=== PATIENT | female | born 1965 ===

== ENCOUNTER 2018-06-08 14:10 | Emergency (ER) | payer OTHER ==
[2018-06-08 14:30] VITALS: BMI 33.6
[2018-06-08 14:40] VITALS: RESP 18; O2SAT 97
[2018-06-08] MEDS ORDERED: Sodium Chloride 0.9% 500 ML IV STA (14:47)
--- NOTE | 2018-06-08 14:50 | ED PDOC ---
Arrival/HPI - General Chief Complaint: Cough, Cold, Congestion Time Seen by Provider: 06/08/18 14:46 Historian: Patient, Family - History of Present Illness Narrative History of Present Illness (Text): 06/08/18 14:48 52 y/o female, pmh including htn, nkda, post menopausal, c/o cough/pleuritic pain and fatigue with fever x 10 days s/p recently travelled to [place] Pt. has no chest pain or shortness of breath, no palpitation, no rash, no numbness or tingling no palpitation, no change in vision, no other medical or psychological complaints. Past Medical History - Provider Review Nursing Documentation Reviewed: Yes - Travel History If Yes, travel location?: [place] - Cardiac Hx Cardiac Disorders: Yes Hx Hypertension: Yes - Pulmonary Hx Respiratory Disorders: No - Neurological Hx Neurological Disorder: No - HEENT Hx HEENT Disorder: No - Renal Hx Renal Disorder: No - Endocrine/Metabolic Hx Endocrine Disorders: No - Hematological/Oncological Hx Blood Disorders: No - Integumentary Hx Dermatological Disorder: No - Musculoskeletal/Rheumatological Hx Musculoskeletal Disorders: No - Gastrointestinal Hx Gastrointestinal Disorders: No - Genitourinary/Gynecological Hx Genitourinary Disorders: No - Psychiatric Hx Psychophysiologic Disorder: No Hx Substance Use: No - Surgical History Hx Hysterectomy: Yes - Anesthesia Hx Anesthesia: Yes Hx Anesthesia Reactions: No Hx Malignant Hyperthermia: No Family/Social History - Physician Review Nursing Documentation Reviewed: Yes Family/Social History: Unknown Family HX Smoking Status: Never Smoked Hx Alcohol Use: No Hx Substance Use: No Allergies/Home Meds Allergies/Adverse Reactions: Allergies No Known Allergies Allergy (Verified 06/08/18 14:29) Home Medications: Home Meds Medication Instructions Recorded Confirmed Lisinopril [Zestril] 40 mg PO DAILY 06/08/18 06/08/18 amLODIPine [Norvasc] 5 mg PO DAILY 06/08/18 06/08/18 hydroCHLOROthiazide [Hydrodiuril] 25 mg PO DAILY 06/08/18 06/08/18 Review of Systems - Review of Systems Constitutional: Fatigue, Fevers Eyes: absent: Vision Changes ENT: absent: Hearing Changes, Rhinorrhea Respiratory: Cough. absent: SOB, Sputum, Wheezing Cardiovascular: Chest Pain Gastrointestinal: absent: Abdominal Pain, Diarrhea, Nausea, Vomiting Skin: absent: Rash, Pruritis Neurological: absent: Headache, Dizziness Psychiatric: absent: Anxiety, Depression, Suicidal Ideation Physical Exam Vital Signs Reviewed: Yes Vital Signs Temp Pulse Resp BP Pulse Ox 06/08/18 14:31 100.2 F H 87 18 117/77 97 Temperature: Febrile Blood Pressure: Normal Pulse: Regular Respiratory Rate: Normal Appearance: Positive for: Well-Appearing, Non-Toxic, Comfortable Pain Distress: Mild Mental Status: Positive for: Alert and Oriented X 3 - Systems Exam Head: Present: Atraumatic, Normocephalic Pupils: Present: PERRL Extroacular Muscles: Present: EOMI Conjunctiva: Present: Normal Ears: Present: NORMAL TM, Normal Canal. No: Erythema Mouth: Present: Moist Mucous Membranes Neck: Present: Normal Range of Motion Respiratory/Chest: Present: Clear to Auscultation, Good Air Exchange. No: Respiratory Distress, Accessory Muscle Use, Wheezes, Decreased Breath Sounds, Rales, Retracting, Rhonchi, Tachypneic, Tender to Palpation Cardiovascular: Present: Regular Rate and Rhythm, Normal S1, S2. No: Murmurs Abdomen: No: Tenderness, Distention, Peritoneal Signs Back: Present: Normal Inspection Upper Extremity: Present: Normal Inspection. No: Cyanosis, Edema Lower Extremity: Present: Normal Inspection. No: Edema Neurological: Present: GCS=15, CN II-XII Intact, Speech Normal, Motor Func Grossly Intact, Normal Cerebellar Funct, Gait Normal, Memory Normal Skin: Present: Warm, Dry, Normal Color. No: Rashes Psychiatric: Present: Alert, Oriented x 3, Normal Insight, Normal Concentration Medical Decision Making ED Course and Treatment: 06/08/18 14:51 -labs -xray -IV toradol/tylenol -observe and reassess 06/08/18 17:17 -rapid flu is negative, clinical suspicious is moderate to high -EKG: SR @ 91 BPM with PSVC, no ST elevation or depression, T wave inversion on the Lead III/V3-V6. -Chest xray: No active disease. -Labs are non-significant except K+ 3.5 (potassium chloride 20meq po ordered). -Trop is negative after 24 hours. -BNP is negative -Dimer is negative -UA is negative -HEART score is low -Case discussed with Dr. Whipple including labs/radiology results, he recommend to be discharged home. -Zithromax and tamiflu/prednisone ordered. -pt. feels completely relief with medications given in the ER. I explained to the patient that she needs home aide outpatient follow up. -Discharge home with prednisone, albuterol MDI, zithromax/tamiflu, motrin, bed rest, follow up with your own pmd and home aide/pulmonlogist/ID within 2 days, return to the ER for any new or worsening signs or symptoms. - RAD Interpretation Radiology Orders: 06/08/18 14:46 CHEST PORTABLE [RAD] Stat Date of service: 06/08/2018 HISTORY: medical clearance COMPARISON: No prior. FINDINGS: LUNGS: No active pulmonary disease. PLEURA: No significant pleural effusion identified, no pneumothorax apparent. CARDIOVASCULAR: No aortic atherosclerotic calcification present. Normal cardiac size. No pulmonary vascular congestion. OSSEOUS STRUCTURES: No significant abnormalities. VISUALIZED UPPER ABDOMEN: Normal. OTHER FINDINGS: None. IMPRESSION: No active disease. 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 Interpreted by ED Physician: Yes Type: 12 lead EKG Comparison: No previous EKG avail. - Medication Orders Current Medication Orders: Acetaminophen (Tylenol 325mg Tab) 650 mg PO STAT STA Stop: 06/08/18 14:47 Sodium Chloride (Sodium Chloride 0.9%) 500 mls @ 999 mls/hr IV .Q31M STA Stop: 06/08/18 15:17 Ketorolac Tromethamine (Toradol) 30 mg IVP STAT STA Stop: 06/08/18 14:47 - PA / [employer] / Resident Statement /DO has reviewed & agrees with the documentation as recorded. Disposition/Present on Arrival - Present on Arrival Any Indicators Present on Arrival: No History of DVT/PE: No History of Uncontrolled Diabetes: No Urinary Catheter: No History of Decub. Ulcer: No History Surgical Site Infection Following: None - Disposition Have Diagnosis and Disposition been Completed?: Yes Diagnosis: URI (upper respiratory infection) Disposition: HOME/ ROUTINE Disposition Time: 17:19 Patient Plan: Discharge Patient Problems: Current Active Problems Problem Status Onset URI (upper respiratory infection) Acute Condition: IMPROVED Additional Instructions: Discharge home with prednisone, albuterol MDI, zithromax/tamiflu, motrin, bed rest, follow up with your own pmd and home aide/pulmonlogist/ID within 2 days, return to the ER for any new or worsening signs or symptoms. Prescriptions: Albuterol HFA [Ventolin HFA 90 mcg/actuation (8 g)] 2 puff IH [id number] PRN #1 in PRN Reason: Other Azithromycin [Zithromax] 250 mg PO DAILY #4 tab Ibuprofen [Motrin Tab] 600 mg PO QID PRN #30 tab PRN Reason: Other Oseltamivir Phosphate [Tamiflu] 75 mg PO BID #10 capsule Prednisone 50 mg PO DAILY #4 tablet Referrals: [facility] [place] [Outside] - Follow up with primary Cipriano Bishop MD [Staff Provider] - Follow up with primary Olegario Jackson MD [Staff Provider] - Follow up with primary Jorge Phillips MD [Staff Provider] - Follow up with primary Forms: [facility] ([place]), WORK NOTE
--- NOTE | 2018-06-08 15:55 | RAD ---
Date of service: 06/08/2018 HISTORY: medical clearance COMPARISON: No prior. FINDINGS: LUNGS: No active pulmonary disease. PLEURA: No significant pleural effusion identified, no pneumothorax apparent. CARDIOVASCULAR: No aortic atherosclerotic calcification present. Normal cardiac size. No pulmonary vascular congestion. OSSEOUS STRUCTURES: No significant abnormalities. VISUALIZED UPPER ABDOMEN: Normal. OTHER FINDINGS: None. IMPRESSION: No active disease.
[2018-06-08 15:58] LABS: ALB/GLOB RATIO 1.3 (1.1-1.8); ALBUMIN 4.4 g/dL (3.0-4.8); ALT/SGPT 39 U/L (7-56); AST/SGOT 38 U/L (14-36); BASO # 0.03 K/mm3 (0.0-2.0); BASO % 0.5 % (0.0-3.0); BLOOD UREA NITROGEN 15 mg/dL (7-21); CALCIUM 9.7 mg/dL (8.4-10.5); EOS # 0.1 (0.0-0.7); EOS % 1.7 % (1.5-5.0); GFR NON-AFRICAN AMERICAN > 60; HEMOGLOBIN 12.9 g/dL (12.0-16.0); MEAN CELL VOLUME 83.3 fl (80.0-105.0); MEAN CORPUSCULAR HEMOGLOBIN 27.2 pg (25.0-35.0); MEAN CORPUSCULAR HGB CONC 32.7 g/dl (31.0-37.0); MEAN PLATELET VOLUME 9.8 fl (7.0-11.0); MONO # 0.3 (0.1-0.6); MONO % 4.5 % (1.0-6.0); RBC 4.74 10^6/uL (3.5-6.1); RED CELL DISTRIBUTION WIDTH 14.7 % (11.5-14.5); WHITE BLOOD COUNT 6.6 10^3/uL (4.5-11.0)
[2018-06-08 16:10] LABS: B-TYPE NATRIURETIC PEPTIDE 32.6 pg/mL (0-450); TROPONIN I < 0.01 ng/mL; URINE BILIRUBIN NEGATIVE (NEGATIVE); URINE BLOOD NEGATIVE (NEGATIVE); URINE GLUCOSE (UA) NEGATIVE (NEGATIVE); URINE LEUKOCYTE ESTERASE SMALL Leu/uL (NEGATIVE); URINE PROTEIN NEGATIVE mg/dL (<30 mg/dL); URINE UROBILINOGEN 0.2 E.U./dL (<1 E.U./dL)
[2018-06-08] MEDS ORDERED: Potassium Chloride 20 mEq ER Tab PO STA (16:10)
[2018-06-08] MEDS ORDERED: Albuterol-Ipratrop 3 mg / 0.5 (3 ml) UD IH STA (16:10)
[2018-06-08 16:11] LABS: URINE APPEARANCE CLEAR (CLEAR); URINE COLOR YELLOW (YELLOW)
[2018-06-08 16:21] LABS: URINE WBC 0 - 2 /hpf (0-6)
[2018-06-08 17:18] VITALS: BP 136/68; PULSE 72; TEMP 98
--- NOTE | 2018-06-08 23:14 | CARD ---
APPROVED REPORT Date of service: 06/08/2018 EKG Measurement Heart [id number] <Conclusion> Sinus rhythm with premature supraventricular complexes Possible Left atrial enlargement T wave abnormalities Abnormal ECG
== END 2018-06-08 18:00 | disposition home or self-care (01) ==
LOC: ED 14:10
DX: J06.9 Acute upper respiratory infection, unspecified (principal); I10 Essential (primary) hypertension
CPT/HCPCS: 71045; 80053; 81001; 83735; 83880; 84484; 85025; 85378; 87086; 87804; 93005; 96374; 99284; J1885; J7040